=== PATIENT | female | born 1955 | race Caucasian/White ===

== ENCOUNTER → 2016-07-18 | Outpatient (CLI) | payer BC ==
[2016-07-18 14:55] VITALS: BP 134/87
== END ==
LOC: MHUC 14:11
PROVIDERS: ATTEND Physician Assistant
DX: J09.X2 Influenza due to identified novel influenza A virus with other respiratory manifestations (principal)
CPT/HCPCS: 99213

== ENCOUNTER → 2016-10-03 | Outpatient (CLI) | payer BC ==
[~2016-10-03] MED LIST: AMOX500C5 PO; BENZ-22 PO; MONT10TA21 PO
[2016-10-03 12:09] VITALS: BP 130/86
--- NOTE | 2016-10-03 12:09 | Urgent Care T Sheet Gen (E) ---
Intake General Temperature (Fahrenheit): 97.6 Pulse: 91 Blood Pressure Systolic: 130 Blood Pressure Diastolic: 86 Respirations: 20 SPO2: 97 Description of Symptoms Patient presents with nasal congestion and L ear pain. Started over the weekend and worsened on Saturday. States her nose is always congested, this is just worse than her usual. Also notes a productive cough, which is worse at night. Also complains of thick PND which is making her throat sore. Has seen an ground operations supervisor in the past however his results showed she wasn't allergic to anything. Takes Claritin daily without much improvement. Does have a prescription for nasal steroid but hasn't used it in a while. Has never taken Singulair. No fever. Used a warm compress to the L ear and neck last night without relief. History of Present Illness Home Meds Active Scripts Benzonatate (Tessalon Perles)100 Mg [id number] Mg PO TID PRN COUGH #30 CAP Prov:NICHOLE ENNIS 07/19/16 Respiratory Constitutional Symptoms: No syptoms reported EENTM: Ear pain Nose Congestion Throat pain Respiratory: Cough Cardiovascular: No symptoms reported Gastrointestinal/Abdominal: No symptoms reported All Other Systems Reviewed Remaining Systems: All other systems reviewed with negative findings Physical Exam Physical Exam General Appearance: WD/WN No apparent distress Eyes, Ears, Nose, Throat Ex: TM abnormal (L) (red) Pharyngeal erythema ( cobblestone appearance wtih thick PND) Other (red, swollen nasal turbinates with purulent drainage) Neck Exam: Supple Lymphadenopathy (on the L side) Respiratory Exam: Lungs clear Normal breath sounds Cardiovascular Exam: Regular rate, rhythm Departure Urgent Care Impression Impression: Primary Impression: Sinusitis Qualified Code: J01.01 - Acute recurrent maxillary sinusitis Additional Impressions: Cough Seasonal allergies Qualified Code: J30.1 - Allergic rhinitis due to pollen Otitis media Qualified Code: H66.002 - Acute suppurative otitis media without spontaneous rupture of ear drum, left ear Departure Disposition: HOME OR SELF-CARE Condition: Stable Referrals: ANALI LEMA (PCP) Additional Instructions: Long discussion with patient regarding symptoms, treatment and previous treatment. Patient states she has a prescription for a nasal steroid however hasn't used it in a while. Instructed her to resume that. Want to open up her sinuses and eustachian tubes. Patient has also been taking Claritin however feels it isn't as effective as before. I have started her on Singulair. She thinks she took it in the past but doesn't remember. I have also started her on Amoxicillin for treatment of her LOM and sinusitis. Robitussin AC 10ml PO qhs prn #100ml for cough. Rest. Fluids Return as needed Patient understands DC instructions. All questions were answered. Scripts Montelukast Sodium (Singulair)10 Mg [id number] Mg PO DAILY #30 TAB Ref 11 Prov:NICHOLE ENNIS 10/03/16 Amoxicillin (Amoxil)500 Mg Capsule1,000 Mg PO BID Infection #40 CAP Ref 0 Prov:NICHOLE ENNIS 10/03/16 End of report . NICHOLE ENNIS October 03, 2016 12:09
== END ==
LOC: MHUC 11:21
PROVIDERS: ATTEND Physician Assistant
DX: J01.01 Acute recurrent maxillary sinusitis (principal); R05 Cough; J30.1 Allergic rhinitis due to pollen; H66.002 Acute suppurative otitis media without spontaneous rupture of ear drum, left ear
CPT/HCPCS: 99213